=== PATIENT | female | born 2005 | race African-American/Black ===

== ENCOUNTER 2024-07-19 06:27 | Inpatient (IN) ==
[2024-07-19] MEDS ORDERED: REGLAN INJ 10 MG VIAL IVP PRN (06:46)
[2024-07-19] MEDS ORDERED: NUBAIN INJ 20 MG AMP IVP PRN (06:46)
[2024-07-19] MEDS: D5 1/2 NS 1,000 ML 1,000 ML IV ONE (06:55)
[2024-07-19] MEDS: OXYTOCIN 20 UNIT/1,000 ML-NS 20 UNIT/1,000 ML PLAST..BAG IV PRN (07:25)
--- NOTE | 2024-07-19 07:25 | DR.OB ---
OB QUICK NOTE Assessment/Plan (1) Elective induction of labor planned: Assessment/Plan: L&D 07/19/24 at 7:08am S-No complaint. O-Afebrile,VSS NVT=901 with good LTV, +accel, no decel. CTX=none CVX=3cm/50%/-1/VTX AROM with clear fluid. IUPC and FSE placed. A-IUP at 40 4/7 weeks for induction +GBS sickle cell trait GERD P-Begin pitocin induction IV ABX in labor F/U labs Anticipate (2) Post-dates :
[2024-07-19] MEDS: NS 100 ML IV 100 ML ONE ×3 (07:37→11:37)
[2024-07-19] MEDS: AMPICILLIN VIAL 2 GRAM ONE (07:37)
[2024-07-19] MEDS: D5 1/2 NS 1,000 ML 1,000 ML IV SCH (08:36)
[2024-07-19] MEDS: PITOCIN ONE (08:41)
[2024-07-19] MEDS: LR 1,000 ML IV 1,000 ML IV ONE ×4 (08:45→17:09)
[2024-07-19] MEDS: ZOFRAN INJ 4 MG VIAL ONE (11:05)
[2024-07-19] MEDS: AMPICILLIN VIAL 1 GRAM ONE (11:37)
--- NOTE | 2024-07-19 12:40 | DR.OB ---
OB QUICK NOTE Assessment/Plan (1) Elective induction of labor planned: Assessment/Plan: L&D 07/19/24 at 12:26pm Pitocin=12mu/min. Ampicillin S-No complaint. s/p epidural. O-Afebrile,VSS HJN=778 with good LTV, +accel, no decel. CTX=q 1 1/2 to 2 min., about 35-55mmHg CVX=6cm/75%/-1/VTX A-IUP at 40 4/7 weeks for induction +GBS sickle cell trait GERD (2) Post-dates :
[2024-07-19] MEDS: BETADINE SOLN ONE (16:00)
[2024-07-19] MEDS: PITOCIN IVP ONE (16:15)
--- NOTE | 2024-07-19 16:23 | DR.OB ---
OB QUICK NOTE Assessment/Plan (1) Elective induction of labor planned: Assessment/Plan: Delivery Note [employer] 07/19/24 at 4:10pm Patient complete and pushing. Head delivered over intact perineum. No nuchal cord. Nose and mouth bulb suctioned. Left hand at face (compound presentation). Body delivered over intact perineum. Cord clamped x 2 and cut. Infant handed to attendant. Cord sent for gases. Placenta delivered spontaneously / intact / 3 vessel cord. No CVX / vaginal / perineal tears. Viable female delivered by , VTX/OA, wt=5'14" and 9/9, stable to NBN. Mother stable to RR. YLY=603mo. (2) Post-dates :
[2024-07-19] MEDS ORDERED: MOTRIN TAB 800 MG PO PRN (16:41)
[2024-07-19] MEDS ORDERED: ADACEL or BOOSTRIX TDaP VACCINE IM ONE (16:41)
[2024-07-19] MEDS ORDERED: DERMOPLAST PAIN RELIEF SPRAY TOP PRN (16:41)
[2024-07-19] MEDS ORDERED: MILK OF MAGNESIA PO PRN (16:41)
[2024-07-19] MEDS ORDERED: AMBIEN PO PRN (16:41)
[2024-07-19] MEDS: OXYTOCIN 20 UNIT/1,000 ML-NS 20 UNIT/1,000 ML PLAST..BAG IV SCH (17:13)
[2024-07-19] MEDS: FERROUS GLUCONATE PO SCH (18:11)
[2024-07-19] MEDS: ZOFRAN INJ 4 MG VIAL IVP PRN (18:11)
[2024-07-19] MEDS: FENTANYL VIAL INJ 100 mcg ONE ×2 (19:53→19:54)
[2024-07-19] MEDS: NAROPIN EPIDURAL 0.2% 100 ML ONE (19:54)
[2024-07-19] MEDS: MOTRIN TAB 800 MG PO PRN (23:29)
[2024-07-20 05:40] LABS: HEMATOCRIT 30.9 % (36.0-47.0); HEMOGLOBIN 10.8 g/dL (12.0-16.0)
[2024-07-20] MEDS: PRENATAL PLUS PO SCH (08:19)
[2024-07-20] MEDS: PROTONIX TAB 40 MG PO SCH (08:19)
[2024-07-20] MEDS: PERCOCET TAB 5/325 MG PO PRN (15:05)
[2024-07-21] MEDS: ADACEL or BOOSTRIX TDaP VACCINE IM ONE (02:07)
[2024-07-21 10:39] VITALS: BP 105/65; PULSE 69; TEMP 98.7; O2SAT 99
[2024-07-21 10:43] VITALS: RESP 18
== END 2024-07-21 11:55 | disposition home or self-care (01) | DRG 806 ==
LOC: LD 06:27 → MED/SURG 18:05
PROVIDERS: ADMIT Specialist; ATTEND Specialist
DX: O99.613 Diseases of the digestive system complicating pregnancy, third trimester; O48.0 Post-term pregnancy; O98.82 Other maternal infectious and parasitic diseases complicating childbirth; D57.3 Sickle-cell trait; Z3A.40 40 weeks gestation of pregnancy; Z37.0 Single live birth; B95.1 Streptococcus, group B, as the cause of diseases classified elsewhere; Z01.812 Encounter for preprocedural laboratory examination